=== PATIENT | female | born 1985 | race African-American/Black ===

== ENCOUNTER 2023-07-11 20:58 | Inpatient (IN) | payer MEDICAID, OTHER ==
[~2023-07-11] VITALS: Ht 170.2 cm; Wt 113.0 kg
[2023-07-11] MEDS ORDERED: MORPHINE SULFATE 4 MG/ML CPJ (NOT FOR IM USE) IV STA (21:26)
[2023-07-11] MEDS ORDERED: SODIUM CHLORIDE 0.9% 1,000 ML IV ONE (21:30)
[2023-07-11 22:53] LABS: INR 0.9; PROTHROMBIN TIME 9.9 sec (9.6-11.0)
[2023-07-11 22:54] LABS: BASOPHILS % 1.2 % (0.0-2.0); EOSINOPHILS % 2.9 % (0.0-5.0); HEMATOCRIT. 37.5 % (36.0-48.0); HEMOGLOBIN. 12.4 g/dL (12.0-16.0); LYMPHOCYTES % 22.8 % (20.0-50.0); MEAN CORPUSCULAR HEMOGLOBIN 30.5 pg (28.0-32.0); MEAN CORPUSCULAR VOLUME 92.4 fL (81.0-99.0); MEAN PLATELET VOLUME 7.7 fl (7.4-10.4); MONOCYTES % 5.6 % (2.0-8.0); NEUTROPHILS % 67.5 % (40.0-76.0); PLATELET 355 x1000/uL (130-400); RED BLOOD CELL COUNT 4.05 mill/uL (4.2-5.4); RED CELL DISTRIBUTION WIDTH 15.3 % (11.6-14.6)
[2023-07-11 23:04] LABS: HCG SCREEN NEGATIVE
[2023-07-11 23:06] LABS: ALANINE AMINOTRANSFERASE 17 IU/L (10-49); ALBUMIN 4.6 g/dL (3.2-4.8); ASPARTATE AMINOTRANSFERASE 24 IU/L (<34); BILIRUBIN TOTAL 0.3 mg/dL (0.1-1.0); CALCIUM 9.5 mg/dL (8.7-10.4); CARBON DIOXIDE 25 mEq/L (21-32); CHLORIDE 106 mEq/L (98-107); CREATININE 0.7 mg/dL (0.6-1.0); GLUCOSE 102 mg/dL (70-105); POTASSIUM 4.2 mEq/L (3.5-5.1); PROTEIN TOTAL 8.1 g/dL (6.0-8.3); SODIUM 141 mEq/L (136-145); UREA NITROGEN BLOOD 8 mg/dL (9-23)
[2023-07-12] MEDS ORDERED: IOHEXOL-300 100 ML BOTTLE ONE (06:24)
[2023-07-12 11:44] VITALS: BP 166/88; PULSE 68; RESP 16; TEMP 97
[2023-07-12 12:47] VITALS: BP 166/88; PULSE 68; RESP 20; TEMP 98.1
[2023-07-12] MEDS ORDERED: MORPHINE SULFATE 2 MG/ML CPJ (NOT FOR IM USE) IV NR (14:45)
[2023-07-12] MEDS ORDERED: ACETAMINOPHEN 325MG TABLET PO PRN (16:30)
[2023-07-12] MEDS ORDERED: ENOXAPARIN 40MG/0.4ML SYR SUBCUT SCH (16:30)
[2023-07-12 16:41] VITALS: BP 142/77; PULSE 57; RESP 18; TEMP 98
[2023-07-12] MEDS ORDERED: NALOXONE HCL 0.4MG/ML VIAL IV PRN (16:45)
[2023-07-12 20:00] VITALS: BP 143/69; PULSE 79; RESP 20; TEMP 97.6
[2023-07-12] MEDS: ENOXAPARIN 30MG/0.3ML SYR SUBCUT SCH (20:30)
[2023-07-12] MEDS: ONDANSETRON HCL 4MG/2ML INJ IV PRN (20:30)
[2023-07-12] MEDS: MORPHINE SULFATE 2 MG/ML CPJ (NOT FOR IM USE) IV PRN (20:32)
[2023-07-13] VITALS: BP 139/73; PULSE 65; RESP 20; TEMP 97.4
[2023-07-13 04:00] VITALS: BP 108/68; PULSE 68; RESP 18; TEMP 97.9
[2023-07-13 06:16] LABS: CLARITY URINE CLEAR (CLEAR); COLOR URINE YELLOW (YELLOW); GLUCOSE URINE NEGATIVE (NEGATIVE); KETONES URINE TRACE (NEGATIVE); NITRITE URINE NEGATIVE (NEGATIVE); OCCULT BLOOD URINE NEGATIVE (NEGATIVE); PH URINE 6.5 (4.5-8.0); PROTEIN URINE TRACE (NEGATIVE); SPECIFIC GRAVITY URINE 1.025 (1.005-1.030)
[2023-07-13 06:17] LABS: LEUKOCYTE ESTERASE URINE NEGATIVE (NEGATIVE)
[2023-07-13 06:28] LABS: WBC URINE 0-2 /hpf (0-2)
[2023-07-13 06:29] LABS: AMORPHOUS SEDIMENT URINE 1+ /lpf; BACTERIA URINE 1+; RBC URINE NONE SEEN /hpf (0-2); SQUAMOUS EPITHELIAL CELL URINE 1+ /lpf (RARE/1+)
[2023-07-13 08:00] VITALS: BP 99/41; PULSE 72; RESP 19; TEMP 97.6
[2023-07-13 08:46] LABS: BASOPHILS % 0.5 % (0.0-2.0); EOSINOPHILS % 5.5 % (0.0-5.0); HEMATOCRIT. 34.3 % (36.0-48.0); HEMOGLOBIN. 11.6 g/dL (12.0-16.0); LYMPHOCYTES % 26.1 % (20.0-50.0); MEAN CORPUSCULAR HEMOGLOBIN 30.8 pg (28.0-32.0); MEAN CORPUSCULAR HGB CONC 33.9 g/dL (31.0-37.0); MEAN CORPUSCULAR VOLUME 90.9 fL (81.0-99.0); MONOCYTES % 6.6 % (2.0-8.0); NEUTROPHILS % 61.3 % (40.0-76.0); PLATELET 295 x1000/uL (130-400); RED BLOOD CELL COUNT 3.77 mill/uL (4.2-5.4); RED CELL DISTRIBUTION WIDTH 15.1 % (11.6-14.6); WHITE BLOOD COUNT 6.7 x1000/uL (4.5-11.0)
[2023-07-13] MEDS: MORPHINE SULFATE 2 MG/ML CPJ (NOT FOR IM USE) IV PRN (09:28)
[2023-07-13] MEDS: ENOXAPARIN 30MG/0.3ML SYR SUBCUT SCH (09:29)
[2023-07-13 09:35] LABS: CALCIUM 8.5 mg/dL (8.7-10.4); CARBON DIOXIDE 24 mEq/L (21-32); CHLORIDE 104 mEq/L (98-107); CREATININE 0.7 mg/dL (0.6-1.0); GLUCOSE 87 mg/dL (70-105); POTASSIUM 3.3 mEq/L (3.5-5.1); SODIUM 139 mEq/L (136-145); UREA NITROGEN BLOOD 10 mg/dL (9-23)
[2023-07-13] MEDS: ONDANSETRON HCL 4MG/2ML INJ IV PRN (09:39)
[2023-07-13 12:00] VITALS: BP 119/59; PULSE 60; RESP 18; RESP 20; TEMP 96.9
[2023-07-13 15:39] VITALS: BP 119/59; PULSE 60; TEMP 96.9; O2SAT 97
[2023-07-13] MEDS ORDERED: HYDR-4001 MT (16:39)
== END 2023-07-13 17:00 | disposition home or self-care (01) | DRG 254 ==
LOC: ER 20:58 → 7WST 07-12 03:03
PROVIDERS: ADMIT Internal Medicine; ATTEND Internal Medicine
DX: K42.9 Umbilical hernia without obstruction or gangrene (principal); E66.01 Morbid (severe) obesity due to excess calories; I10 Essential (primary) hypertension; Z88.2 Allergy status to sulfonamides; Z68.39 Body mass index [BMI] 39.0-39.9, adult
CPT/HCPCS: 36415; 74177; 80048; 80053; 81003; 84703; 85025; 99285; J1650; J2270; J2405; J7030; Q9967

== ENCOUNTER 2024-08-12 23:39 | Emergency (ER) | payer MEDICAID, OTHER ==
[~2024-08-12] VITALS: Ht 175.3 cm; Wt 109.0 kg
[~2024-08-12 23:39] MED LIST: HYDR-4001 MT
[2024-08-12 23:43] VITALS: TEMP 97.2; O2SAT 99
[2024-08-12] MEDS: ONDANSETRON HCL 4MG/2ML INJ IV STA (23:45)
[2024-08-12] MEDS: SODIUM CHLORIDE 0.9% 1,000 ML IV ONE (23:45)
[2024-08-12] MEDS: ACETAMINOPHEN 1000MG/100ML 100 ML IV ONE (23:45)
[2024-08-13 00:43] LABS: BASOPHILS % 0.2 % (0.0-2.0); EOSINOPHILS % 4.6 % (0.0-5.0); HEMATOCRIT. 36.6 % (36.0-48.0); HEMOGLOBIN. 12.2 g/dL (12.0-16.0); LYMPHOCYTES % 25.3 % (20.0-50.0); MEAN CORPUSCULAR HEMOGLOBIN 30.9 pg (28.0-32.0); MEAN CORPUSCULAR HGB CONC 33.3 g/dL (31.0-37.0); MEAN CORPUSCULAR VOLUME 92.7 fL (81.0-99.0); MEAN PLATELET VOLUME 7.2 fl (7.4-10.4); MONOCYTES % 4.2 % (2.0-8.0); NEUTROPHILS % 65.7 % (40.0-76.0); PLATELET 393 x1000/uL (130-400); RED BLOOD CELL COUNT 3.95 mill/uL (4.2-5.4); RED CELL DISTRIBUTION WIDTH 14.8 % (11.6-14.6); WHITE BLOOD COUNT 7.7 x1000/uL (4.5-11.0)
[2024-08-13 00:52] LABS: CHLORIDE 108 mEq/L (98-107); POTASSIUM 3.9 mEq/L (3.5-5.1); SODIUM 143 mEq/L (136-145)
[2024-08-13 00:53] LABS: CALCIUM 9.1 mg/dL (8.7-10.4); CARBON DIOXIDE 24 mEq/L (21-32)
[2024-08-13 00:58] LABS: CREATININE 0.7 mg/dL (0.6-1.0); GLUCOSE 97 mg/dL (70-105); UREA NITROGEN BLOOD 8 mg/dL (9-23)
[2024-08-13 00:59] LABS: ETHANOL BLOOD 232 mg/dL (<10)
[2024-08-13 01:00] LABS: ALANINE AMINOTRANSFERASE 19 IU/L (10-49); ALBUMIN 4.6 g/dL (3.2-4.8); ASPARTATE AMINOTRANSFERASE 25 IU/L (<34); BILIRUBIN TOTAL 0.2 mg/dL (0.1-1.0)
[2024-08-13 01:04] LABS: HCG SCREEN NEGATIVE
[2024-08-13 01:17] LABS: BILIRUBIN DIRECT < 0.1 mg/dL (<=3.0)
[2024-08-13 01:27] LABS: INR 0.9
[2024-08-13] MEDS: ONDANSETRON HCL 4MG/2ML INJ IV NR (02:56)
[2024-08-13] MEDS: MAGNESIUM/ALUMINUM HYDROXIDE/SIMETHICONE 30ML UDC PO NR (02:56)
[2024-08-13] MEDS: PANTOPRAZOLE SODIUM 40 MG/VIAL IV NR (02:56)
[2024-08-13] MEDS ORDERED: ACET-2708 MT (03:39)
[2024-08-13] MEDS ORDERED: PROT40 MT (03:39)
[2024-08-13] MEDS ORDERED: MAG355OR21 MT (03:39)
[2024-08-13] MEDS ORDERED: ONDA4TAB50 MT (03:39)
[2024-08-13 04:15] VITALS: BP 100/58; PULSE 82; RESP 18; O2SAT 100
== END 2024-08-13 04:16 | disposition home or self-care (01) ==
LOC: ER 23:46
DX: G89.29 Other chronic pain (principal); R10.9 Unspecified abdominal pain; K43.9 Ventral hernia without obstruction or gangrene; F10.129 Alcohol abuse with intoxication, unspecified; Z79.899 Other long term (current) drug therapy; Z88.2 Allergy status to sulfonamides
CPT/HCPCS: 80076; 80048; 80320; 84703; 83690; 85025; 85610; 36415; 96365; 99285; 74176; 96367; 96375; J7030; J2405; J2470; Z7610 ×2; G0480; J0131